=== PATIENT | male | born 1995 | race Caucasian/White ===

== ENCOUNTER 2016-06-09 19:17 | Emergency (ER) | payer MEDICAID, OTHER ==
[2016-06-09 19:49] VITALS: BP 133/77
--- NOTE | 2016-06-09 19:49 | EDM.PDOC ---
ED HPI GI/ABDOMINAL - General Chief Complaint: Gastrointestinal Problem Stated Complaint: COLLAPSED AT WORK Time Seen by Provider: 06/09/16 19:47 Source of Information: Reports: Patient History Limitations: Reports: No limitations - History of Present Illness INITIAL COMMENTS - FREE TEXT/NARRATIVE: states was at work sudden felt all his energy has been drained out and felt like collapsing to the floor then got nauseous and vomited x 1. denies F/C , no body aches but been very tired past 2 days, appetite poor without N/V/D till today. - Related Data Allergies/ADRs: Allergies Allergy/AdvReac Type Severity Reaction Status Date / Time No Known Allergies Allergy Verified 01/10/16 22:33 Home Meds: Home Meds Dextroamphetamine/Amphetamine [Adderall Xr 30 mg Capsule] 1 tab PO DAILY [History] [place] Carbonate 1 tab PO ASDIRECTED 12/28/15 [History] [place] Carbonate [[place] Carbonate ER] 1 tab PO ASDIRECTED 12/28/15 [History] Loratadine [Claritin] 1 tab PO DAILY 12/28/15 [History] OLANZapine [Olanzapine] 1 tab PO DAILY 12/28/15 [History] Omeprazole 1 tab PO DAILY 12/28/15 [History] Past Medical History HEENT History: Reports: Otitis media Respiratory History: Reports: Asthma Gastrointestinal History: Reports: GERD Musculoskeletal History: Reports: Fracture Psychiatric History: Reports: ADHD, Autism, Depression, Psychosis - Past Surgical History Musculoskeletal Surgical History: Reports: ORIF Social & Family History - Tobacco Use Smoking Status *Q: Never Smoker Years of Tobacco use: 2 Packs/Tins Daily: 0.2 Used Tobacco, but Quit: No Second Hand Smoke Exposure: No - Caffeine Use Caffeine Use: Reports: Energy drinks, Soda - Recreational Drug Use Recreational Drug Use: No ED ROS GENERAL - Review of Systems Review Of Systems: ROS reveals no pertinent complaints other than HPI. ED EXAM, GI/ABD - Physical Exam Exam: See Below Exam Limited By: No limitations General Appearance: alert, WD/WN, no apparent distress, other (distraught) Eyes: bilateral: normal appearance (pupils ess ER @ 4mm) Ears: hearing grossly normal Throat/Mouth: Normal voice, No airway compromise, Inflammation Head: atraumatic Neck: non-tender, full range of motion Respiratory/Chest: no respiratory distress Cardiovascular: regular rate, rhythm GI/Abdominal: soft, non tender, hyperactive bowel sounds Neurological: alert, oriented, normal cognition, normal gait, no motor/sensory deficits Psychiatric: flat affect Skin Exam: Warm, Dry Lymphatic: no adenopathy Course - Vital Signs Last Recorded V/S: Last Vital Signs Temp 37.3 C 06/09/16 19:22 Pulse 100 06/09/16 19:22 Resp 16 06/09/16 19:22 BP 133/77 06/09/16 19:22 Pulse Ox 97 06/09/16 19:22 - Orders/Labs/Meds Orders: Active Orders 24 hr Category Date Time Status INFLUENZA A+B AG SCREEN [RM] Stat Lab 06/09/16 19:43 Received STREP SCRN A RAPID W CULT CONF [RM] Stat Lab 06/09/16 19:43 Received - Re-Assessments/Exams Free Text/Narrative Re-Assessment/Exam: 06/09/16 21:13 neg' results discussed with Pt who is feeling better now. Departure - Departure Time of Disposition: 21:13 Disposition: Home, Self-Care 01 Condition: good Clinical Impression: Flu syndrome Instructions: Nausea and Vomiting, Adult, [id number] Forms: ED Department Discharge Additional Instructions: 1) rest and sleep as much as possible 2) drink lots of liquids 3) take tylenol or motrin for fever, chills, body aches 4) follow up at clinic or recheck as needed - My Orders Last 24 Hours: My Active Orders 06/09/16 19:43 INFLUENZA A+B AG SCREEN [RM] Stat STREP SCRN A RAPID W CULT CONF [RM] Stat - Assessment/Plan Last 24 Hours: My Active Orders 06/09/16 19:43 INFLUENZA A+B AG SCREEN [RM] Stat STREP SCRN A RAPID W CULT CONF [RM] Stat
== END 2016-06-09 21:30 | disposition home or self-care (01) ==
LOC: DL.ED 19:17
DX: J11.1 Influenza due to unidentified influenza virus with other respiratory manifestations (principal); Z79.899 Other long term (current) drug therapy; J45.909 Unspecified asthma, uncomplicated; K21.9 Gastro-esophageal reflux disease without esophagitis; F90.9 Attention-deficit hyperactivity disorder, unspecified type; F84.0 Autistic disorder; F32.9 Major depressive disorder, single episode, unspecified
CPT/HCPCS: 87081; 87430; 87804; 99284

== ENCOUNTER 2016-11-14 16:00 | Emergency (ER) | payer SELFPAY ==
[2016-11-14 16:36] VITALS: BP 121/60
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
[2016-11-14] MEDS ORDERED: Ibuprofen 800 MG Tab PO ONE (17:10)
[2016-11-14] MEDS ORDERED: Acetaminophen/HYDROcodone 325-10 MG Tab PO ONE (17:10)
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
== END 2016-11-14 17:30 | disposition home or self-care (01) ==
LOC: DL.ED 16:00
DX: S53.401A Unspecified sprain of right elbow, initial encounter (principal); S83.91XA Sprain of unspecified site of right knee, initial encounter; M70.21 Olecranon bursitis, right elbow; M25.512 Pain in left shoulder; J45.909 Unspecified asthma, uncomplicated; K21.9 Gastro-esophageal reflux disease without esophagitis; F90.9 Attention-deficit hyperactivity disorder, unspecified type; F32.9 Major depressive disorder, single episode, unspecified; F29 Unspecified psychosis not due to a substance or known physiological condition; Z79.899 Other long term (current) drug therapy; V29.9XXA Motorcycle rider (driver) (passenger) injured in unspecified traffic accident, initial encounter
CPT/HCPCS: 36415; 73030; 73080; 73562; 80305; 81001; 85025; 99284; A9270; G0480

== ENCOUNTER 2017-02-13 16:39 | Emergency (ER) | payer SELFPAY ==
[2017-02-13 17:10] VITALS: BP 150/90
--- NOTE | 2017-02-13 17:32 | EDM.PDOC ---
Scribed by Pat Beard 02/13/17 [id number] for Mari Zamora NP ED HPI GENERAL MEDICAL PROBLEM - General Chief Complaint: ENT Problem Stated Complaint: SORE THROAT Time Seen by Provider: 02/13/17 17:06 Source of Information: Reports: Patient, RN, RN Notes Reviewed History Limitations: Reports: No Limitations - History of Present Illness INITIAL COMMENTS - FREE TEXT/NARRATIVE: Patient presents with sore throat since yesterday. He has cough and phlegm.No fever, chills, nausea, vomiting or diarrhea. He works at [employer]. Location: Reports: Other (throat) Quality: Reports: Ache Severity: Mild Improves with: Reports: None Worsens with: Reports: None Associated Symptoms: Reports: No Other Symptoms Throat Pain Score (Numeric/FACES): 6 - Related Data Allergies Allergy/AdvReac Type Severity Reaction Status Date / Time No Known Allergies Allergy Verified 02/13/17 16:56 Past Medical History HEENT History: Reports: Otitis Media Respiratory History: Reports: Asthma Gastrointestinal History: Reports: GERD Musculoskeletal History: Reports: Fracture Psychiatric History: Reports: ADHD, Autism, Depression, Psychosis - Past Surgical History Musculoskeletal Surgical History: Reports: ORIF Social & Family History - Family History Family Medical History: Noncontributory - Tobacco Use Smoking Status *Q: Never Smoker Years of Tobacco use: 2 Packs/Tins Daily: 0.2 Used Tobacco, but Quit: No Second Hand Smoke Exposure: No - Caffeine Use Caffeine Use: Reports: Energy Drinks, Soda - Recreational Drug Use Recreational Drug Use: No ED ROS ENT - Review of Systems Review Of Systems: ROS reveals no pertinent complaints other than HPI. ED EXAM, ENT - Physical Exam Exam: See Below Exam Limited By: No Limitations General Appearance: Alert, WD/WN, No Apparent Distress Eye Exam: Bilateral Eye: Normal Inspection Ears: Normal External Exam, Normal Canal, Hearing Grossly Normal, Normal TMs Nose: Normal Inspection, Normal Mucousa, No Blood Mouth/Throat: Other (Mild erythemawithout exudate. Tonsils +1.) Head: Atraumatic, Normocephalic Neck: Normal Inspection, Supple, Non-Tender, Full Range of Motion Respiratory/Chest: No Respiratory Distress, Lungs Clear, Normal Breath Sounds, No Accessory Muscle Use, Chest Non-Tender Cardiovascular: Normal Peripheral Pulses, Regular Rate, Rhythm, No Edema, No Gallop, No JVD, No Murmur, No Rub GI/Abdominal: Normal Bowel Sounds, Soft, Non-Tender, No Organomegaly, No Distention, No Abnormal Bruit, No Mass (Male) Exam: Deferred Rectal (Males) Exam: Deferred Back: Normal Inspection, Full Range of Motion Extremities: Normal Inspection, Normal Range of Motion, Non-Tender, No Pedal Edema, Normal Capillary Refill Psychiatric: Normal Affect, Normal Mood Skin: Warm, Dry, Intact, Normal Color, No Rash Lymphatic: Other (anterior and cervica llymphs.) Course - Vital Signs Last Recorded V/S: Last Vital Signs Temp 98.4 F 02/13/17 17:07 Pulse 119 H 02/13/17 17:07 Resp 20 02/13/17 17:07 BP 150/90 H 02/13/17 17:07 Pulse Ox 99 02/13/17 17:07 - Orders/Labs/Meds Orders: Active Orders 24 hr Category Date Time Status CULTURE STREP A CONFIRMATION [RM] Stat Lab 02/13/17 17:02 Results STREP SCRN A RAPID W CULT CONF [RM] Stat Lab 02/13/17 17:02 Results Labs: Strep: Negative. Departure - Departure Time of Disposition: 17:28 Disposition: Home, Self-Care 01 Condition: Fair Clinical Impression: Cough Pharyngitis Qualifiers: Pharyngitis/tonsillitis etiology: unspecified etiology Qualified Code(s): J02.9 - Acute pharyngitis, unspecified - Discharge Information Instructions: Pharyngitis, [id number], Sore Throat, [id number] Forms: ED Department Discharge Additional Instructions: Follow up with your primary care provider next week if no improvement, or worsening. RX: Cheratussin AC Rest, hydration Tylenol or ibuprofen as directed for pain or fever. - My Orders Last 24 Hours: My Active Orders 02/13/17 17:02 CULTURE STREP A CONFIRMATION [RM] Stat STREP SCRN A RAPID W CULT CONF [RM] Stat - Assessment/Plan Last 24 Hours: My Active Orders 02/13/17 17:02 CULTURE STREP A CONFIRMATION [RM] Stat STREP SCRN A RAPID W CULT CONF [RM] Stat I have read and agree with the documentation that has been completed regarding this visit. By signing this record, I attest that the documentation was completed in my physical presence and is an accurate record of the encounter.
== END 2017-02-13 17:37 | disposition home or self-care (01) ==
LOC: DL.ED 16:39
DX: J02.9 Acute pharyngitis, unspecified (principal)
CPT/HCPCS: 87081; 87430; 99283

== ENCOUNTER 2017-08-13 09:17 | Emergency (ER) | payer SELFPAY ==
--- NOTE | 2017-08-13 10:01 | EDM.PDOC ---
ED HPI GENERAL MEDICAL PROBLEM - General Chief Complaint: Syncope Stated Complaint: WEAK. WC INJ 05/26/17 Time Seen by Provider: 08/13/17 09:45 Source of Information: Reports: Patient History Limitations: Reports: No Limitations - History of Present Illness INITIAL COMMENTS - FREE TEXT/NARRATIVE: This 22 yo male patient reports to the ED due to having an episode of syncope yesterday. The patient reports he was visiting his father yesterday when he started to have a headache at about 1500. The patient reports he fell down yesterday due to the "stabbing" pain in his head. The patient reports that after that time, he laid down and slept up until about 1 hour before appearance in the ED. The patient reports that he had an accident at work in May when he fell at work and hit his head. The patient reports his provider has not allowed him to go back to work due to the fact that he "lost" 2 months of his lift. The patient reports that he has had CT's, MRI's and EEG's along with numerous neurology visits, but the professionals can not figure out what is going on. The patient reports that he took Tylenol yesterday at 1600. The patient also reports a generalized weakness. Onset Date: 08/12/17 Onset Time: 15:00 Duration: Constant Location: Reports: Head (ache), Generalized (weakness) Quality: Reports: Ache, Sharp, Stabbing Severity: Severe Improves with: Reports: None Worsens with: Reports: None Associated Symptoms: Reports: Weakness (generalized) Treatments DIRECTOR OF MEDIA: Reports: Acetaminophen (yesterday at 1600) - Related Data Allergies Allergy/AdvReac Type Severity Reaction Status Date / Time seasonal Allergy Other Uncoded 08/13/17 11:28 Home Meds: Home Meds Acetaminophen [Tylenol] 650 mg PO ASDIRECTED PRN 08/13/17 [History] Ibuprofen 400 mg PO ASDIRECTED PRN 08/13/17 [History] Past Medical History HEENT History: Reports: Otitis Media Respiratory History: Reports: Asthma Gastrointestinal History: Reports: GERD Musculoskeletal History: Reports: Fracture Psychiatric History: Reports: ADHD, Autism, Depression, Psychosis Other Psychiatric History: has been off of all medications over 1 year due to insurance issues - Past Surgical History Musculoskeletal Surgical History: Reports: ORIF Social & Family History - Family History Family Medical History: Noncontributory - Caffeine Use Caffeine Use: Reports: Energy Drinks, Soda ED ROS GENERAL - Review of Systems Review Of Systems: ROS reveals no pertinent complaints other than HPI. ED EXAM, GENERAL - Physical Exam Exam: See Below Exam Limited By: No Limitations General Appearance: Alert, WD/WN, Moderate Distress, Obese Eye Exam: Bilateral Eye: EOMI, Normal Inspection, PERRL Ears: Normal External Exam, Normal Canal, Hearing Grossly Normal, Normal TMs Nose: Normal Inspection, Normal Mucosa, No Blood Throat/Mouth: Normal Inspection, Normal Lips, Normal Teeth, Normal Gums, Normal Oropharynx, Normal Voice, No Airway Compromise Head: Atraumatic, Normocephalic Neck: Normal Inspection, Supple, Non-Tender, Full Range of Motion Respiratory/Chest: No Respiratory Distress, Lungs Clear, Normal Breath Sounds, No Accessory Muscle Use, Chest Non-Tender Cardiovascular: Normal Peripheral Pulses, Regular Rate, Rhythm, No Edema, No Gallop, No JVD, No Murmur, No Rub GI/Abdominal: Normal Bowel Sounds, Soft, Non-Tender, No Organomegaly, No Distention, No Abnormal Bruit, No Mass, Other (obese) (Male) Exam: Deferred Rectal (Males) Exam: Deferred Back Exam: Normal Inspection, Full Range of Motion, NT Extremities: Normal Inspection, Normal Range of Motion, Non-Tender, Normal Capillary Refill, No Pedal Edema Neurological: Alert, Oriented, CN II-XII Intact, Normal Cognition, Normal Gait, No Motor/Sensory Deficits Psychiatric: Depressed Mood, Flat Affect Skin Exam: Warm, Dry, Intact, Normal Color, No Rash Lymphatic: No Adenopathy Course - Vital Signs Last Recorded V/S: Last Vital Signs Temp 36.9 C 08/13/17 09:30 Pulse 93 08/13/17 09:30 Resp 12 08/13/17 09:30 BP 125/83 08/13/17 09:30 Pulse Ox 94 L 08/13/17 09:30 - Orders/Labs/Meds Orders: Active Orders 24 hr Category Date Time Status EKG Documentation Completion [RC] URGENT Care 08/13/17 09:54 Ordered DRUG SCREEN URINE BIORAD [URCHEM] Stat Lab 08/13/17 09:52 Ordered UA W/MICROSCOPIC [URIN] Stat Lab 08/13/17 09:52 Ordered Ketorolac [Toradol] Med 08/13/17 12:24 Once 30 mg IVPUSH ONETIME ONE Medication Orders Ketorolac Tromethamine (Toradol) 30 mg IVPUSH ONETIME ONE Stop: 08/13/17 12:25 Labs: Laboratory Tests 08/13/17 08/13/17 08/13/17 Range/Units 10:10 10:10 12:08 WBC 9.1 (5.0-10.0) 10^3/uL RBC 5.52 (4.6-6.2) 10^6/uL Hgb 15.8 (14.0-18.0) g/dL Hct 46.3 (40.0-54.0) % MCV 83.9 (80-100) fL MCH 28.6 (27.0-34.0) pg MCHC 34.1 (33.0-35.0) g/dL Plt Count 210 (150-450) 10^3/uL Neut % (Auto) 59.9 (42.2-75.2) % Lymph % (Auto) 29.1 (20.5-50.1) % [place] % (Auto) 6.6 (2-8) % Eos % (Auto) 4.0 H (1.0-3.0) % Baso % (Auto) 0.4 (0.0-1.0) % Sodium 138 (135-145) mmol/L Potassium 3.9 (3.6-5.0) mmol/L Chloride 104 (101-111) mmol/L Carbon Dioxide 26.0 (21.0-31.0) mmol/L Anion Gap 11.9 BUN 13 (7-18) mg/dL Creatinine 0.8 (0.6-1.3) mg/dL Est Cr Clr Drug Dosing 174.57 mL/min Estimated GFR (MDRD) > 60 BUN/Creatinine Ratio 16.25 Glucose 92 (74-105) mg/dL Calcium 9.0 (8.4-10.2) mg/dl Total Bilirubin 0.7 (0.2-1.0) mg/dL AST 19 (10-42) IU/L ALT 30 (10-60) IU/L Alkaline Phosphatase 118 (42-121) IU/L Troponin I < 0.02 (0.00-0.02) ng/ml Total Protein 7.6 (6.7-8.2) g/dl Albumin 4.2 (3.2-5.5) g/dl Globulin 3.4 Albumin/Globulin Ratio 1.24 Urine Color Yellow (YELLOW) Urine Appearance Clear (CLEAR) Urine pH 6.5 (5.0-9.0) Ur Specific [place] 1.015 (1.005-1.030) Urine Protein Negative (NEGATIVE) Urine Glucose (UA) Negative (NEGATIVE) Urine Ketones Negative (NEGATIVE) Urine Occult Blood Negative (NEGATIVE) Urine Nitrite Negative (NEGATIVE) Urine Bilirubin Negative (NEGATIVE) Urine Urobilinogen 0.2 (0.2-1.0) mg/dL Ur Leukocyte Esterase Negative (NEGATIVE) Urine RBC Not seen /HPF Urine WBC 0-5 (0-5/HPF) /HPF Ur Epithelial Cells Rare /HPF Urine Bacteria Not seen (0-FEW/HPF) /HPF Urine Mucus Rare /LPF Urine Opiates Screen (NEGATIVE) Ur Oxycodone Screen (NEGATIVE) Urine Methadone Screen (NEGATIVE) Ur Barbiturates Screen (NEGATIVE) U Tricyclic Antidepress (NEGATIVE) Ur Phencyclidine Scrn (NEGATIVE) Ur Amphetamine Screen (NEGATIVE) U Methamphetamines Scrn (NEGATIVE) Urine MDMA Screen (NEGATIVE) U Benzodiazepines Scrn (NEGATIVE) Urine Cocaine Screen (NEGATIVE) U Marijuana (THC) Screen (NEGATIVE) 08/13/17 Range/Units 12:08 WBC (5.0-10.0) 10^3/uL RBC (4.6-6.2) 10^6/uL Hgb (14.0-18.0) g/dL Hct (40.0-54.0) % MCV (80-100) fL MCH (27.0-34.0) pg MCHC (33.0-35.0) g/dL Plt Count (150-450) 10^3/uL Neut % (Auto) (42.2-75.2) % Lymph % (Auto) (20.5-50.1) % [place] % (Auto) (2-8) % Eos % (Auto) (1.0-3.0) % Baso % (Auto) (0.0-1.0) % Sodium (135-145) mmol/L Potassium (3.6-5.0) mmol/L Chloride (101-111) mmol/L Carbon Dioxide (21.0-31.0) mmol/L Anion Gap BUN (7-18) mg/dL Creatinine (0.6-1.3) mg/dL Est Cr Clr Drug Dosing mL/min Estimated GFR (MDRD) BUN/Creatinine Ratio Glucose (74-105) mg/dL Calcium (8.4-10.2) mg/dl Total Bilirubin (0.2-1.0) mg/dL AST (10-42) IU/L ALT (10-60) IU/L Alkaline Phosphatase (42-121) IU/L Troponin I (0.00-0.02) ng/ml Total Protein (6.7-8.2) g/dl Albumin (3.2-5.5) g/dl Globulin Albumin/Globulin Ratio Urine Color (YELLOW) Urine Appearance (CLEAR) Urine pH (5.0-9.0) Ur Specific [place] (1.005-1.030) Urine Protein (NEGATIVE) Urine Glucose (UA) (NEGATIVE) Urine Ketones (NEGATIVE) Urine Occult Blood (NEGATIVE) Urine Nitrite (NEGATIVE) Urine Bilirubin (NEGATIVE) Urine Urobilinogen (0.2-1.0) mg/dL Ur Leukocyte Esterase (NEGATIVE) Urine RBC /HPF Urine WBC (0-5/HPF) /HPF Ur Epithelial Cells /HPF Urine Bacteria (0-FEW/HPF) /HPF Urine Mucus /LPF Urine Opiates Screen Positive H (NEGATIVE) Ur Oxycodone Screen Negative (NEGATIVE) Urine Methadone Screen Negative (NEGATIVE) Ur Barbiturates Screen Negative (NEGATIVE) U Tricyclic Antidepress Negative (NEGATIVE) Ur Phencyclidine Scrn Negative (NEGATIVE) Ur Amphetamine Screen Negative (NEGATIVE) U Methamphetamines Scrn Negative (NEGATIVE) Urine MDMA Screen Negative (NEGATIVE) U Benzodiazepines Scrn Negative (NEGATIVE) Urine Cocaine Screen Negative (NEGATIVE) U Marijuana (THC) Screen Negative (NEGATIVE) Meds: Medications Generic Name Dose Route Start Last Admin Trade Name Freq PRN Reason Stop Dose Admin Ketorolac Tromethamine 30 mg 08/13/17 12:24 Toradol IVPUSH 08/13/17 12:25 ONETIME ONE Discontinued Medications Generic Name Dose Route Start Last Admin Trade Name Freq PRN Reason Stop Dose Admin Sodium Chloride 1,000 mls @ 999 mls/hr 08/13/17 09:52 08/13/17 10:29 Normal Saline IV 08/13/17 10:52 999 mls/hr .BOLUS ONE Administration - Re-Assessments/Exams Free Text/Narrative Re-Assessment/Exam: 08/13/17 11:48 The patient was advised of the lab results while in the ED. The patient reports his pain went from a 4 to a 2/10 after 1 liter of fluid. Departure - Departure Time of Disposition: 12:25 Disposition: Home, Self-Care 01 Condition: Fair Clinical Impression: Headache Qualifiers: Headache type: unspecified Headache chronicity pattern: acute headache Intractability: intractable Qualified Code(s): R51 - Headache - Discharge Information Instructions: General Headache Without Cause Forms: ED Department Discharge Care Plan Goals: The patient was advised of the examination, lab and CT results during the visit. The patient was given a liter of IV fluid and IV Toradol while in the ED. The patient was encouraged to increase his oral fluid intake. If the patient has any additional symptoms or concerns, the patient should follow-up with his primary care facility or return to the emergency department. - My Orders Last 24 Hours: My Active Orders 08/13/17 09:52 DRUG SCREEN URINE BIORAD [URCHEM] Stat UA W/MICROSCOPIC [URIN] Stat 08/13/17 09:54 EKG Documentation Completion [RC] URGENT 08/13/17 12:24 Ketorolac [Toradol] 30 mg IVPUSH ONETIME ONE - Assessment/Plan Last 24 Hours: My Active Orders 08/13/17 09:52 DRUG SCREEN URINE BIORAD [URCHEM] Stat UA W/MICROSCOPIC [URIN] Stat 08/13/17 09:54 EKG Documentation Completion [RC] URGENT 08/13/17 12:24 Ketorolac [Toradol] 30 mg IVPUSH ONETIME ONE
[2017-08-13 10:23] VITALS: BP 125/83
[2017-08-13] MEDS: Sodium Chloride 0.9% 1,000 ML IV ONE (10:29)
[2017-08-13 10:37] LABS: CHLORIDE,CL 104 mmol/L (101-111); SODIUM,NA 138 mmol/L (135-145)
--- NOTE | 2017-08-13 11:59 | CT ---
Clinical history: 22-year-old 317 pounds male with unexplained headache. No known trauma. Rule out in tracranial abnormality. Scan technique: Volume acquisition of data emergency unenhanced CT scan of the head and brain obtaine d while patient was lying supine on the Siemens multi slice scanner [place], [place]. All data archived in the PACS system for storage and study. Interpretation: Negative exam. Uniformly thick bony calvarium. Symmetric clear pneumatization of the paranasal and mastoid sinuses. No sign of skull fracture, underlying brain contusion or epidural/subdural hematoma. Symmetric normal stephen-white matter pattern and except for positional artifact underlying mirror-image normal ventricular system. No supratentorial or posterior fossa mass lesion. No pathologic intracranial calcifications. No focal ischemic change or infarct. No sign of acute intracerebral/intraventricular/subarachnoid bleed. Cerebellum and brainstem unremarkable.
[2017-08-13] MEDS: Ketorolac 30 MG/ML SDV IVPUSH ONE (12:35)
--- NOTE | 2017-08-14 09:59 | EKG ---
08/13/2017 - AGUS ALCARAZ - TIME: 10:13 a.m. FINDINGS: EKG shows a heart rate of 87 beats per minute. Normal sinus rhythm with a right bundle-branch block. [facility] /[id number]
== END 2017-08-13 13:17 | disposition home or self-care (01) ==
LOC: DL.ED 09:17
DX: R51 Headache (principal)
CPT/HCPCS: 36415; 70450; 80053; 80305; 81001; 84484; 85025; 93005; 96361; 96374; 99285; J1885; J7030; 93010